=== PATIENT | male | born 1935 | race Caucasian/White ===

== ENCOUNTER 2018-04-07 06:51 | Inpatient (IN) ==
[2018-04-01 18:47] LABS: Appearance,Urine CLEAR; Bilirubin,Urine NEG (NEG); Color,Urine STRAW; Glucose,Urine (UA) NEGATIVE (NEG); Leukocyte Esterase,Urine NEG /uL (NEG); Protein,Urine NEG (NEG); Specific Gravity,Urine 1.009 (1.000-1.035); Urine Blood NEG mg/dL (<0.03); Urobilinogen,Urine NEG (NEG)
[2018-04-01 19:18] LABS: Basophils # (Auto) 0 K/mcL (0.0-0.3); Basophils % (Auto) 0.6 % (0.0-2.0); Eosinophils # (Auto) 0.2 K/mcL (0.0-0.7); Eosinophils % (Auto) 2.8 % (0.0-7.0); Granulocytes % (Auto) 62.1 % (38.0-78.0); Lymphocytes # (Auto) 1.7 K/mcL (1.5-4.8); Lymphocytes % (Auto) 26.2 % (15.5-49.0); Mean Corpuscular HGB Conc 33.3 g/dL (31.0-36.0); Mean Corpuscular Hemoglobin 29.6 pg (26.0-34.0); Monocytes # (Auto) 0.5 K/mcL (0.1-0.9); Monocytes % (Auto) 8.3 % (1.0-12.0); Platelet Count 253 K/mcL (140-440); RBC 4.99 M/mcL (4.50-5.90); Red Cell Distribution Width 13.3 % (11.5-14.5)
[2018-04-01 20:23] LABS: Blood Urea Nitrogen 23 mg/dl (8-23); Estimated Average Glucose(eAG) 108 mg/dL; Hemoglobin A1C 5.4 % HGB (4.0-6.0)
[2018-04-07] MEDS ORDERED: CELECOXIB 200 MG CAPSULE PO SCH (07:00)
[2018-04-07] MEDS ORDERED: PREGABALIN 75 MG CAPSULE PO SCH (07:00)
[2018-04-07] MEDS ORDERED: oxyCODONE 10 MG TAB.ER.12H PO SCH (07:00)
[2018-04-07] MEDS ORDERED: 0.9 % SODIUM CHLORIDE 9 ML, KETOROLAC 30 MG, ROPIVACAINE HCL/PF 49.5 ML, EPINEPHrine 0.... IJ SCH (07:00)
[2018-04-07] MEDS ORDERED: ceFAZolin 1 GM VIAL IV SCH (07:00)
[2018-04-07] MEDS ORDERED: ROPIVACAINE HCL/PF 20 ML VIAL IJ ONE (09:10)
[2018-04-07] MEDS ORDERED: LIDOCAINE HCL/PF 100 MG/5 ML SYRINGE IV ONE (09:10)
[2018-04-07] MEDS ORDERED: TRANEXAMIC ACID 1,000 MG/10 ML VIAL IV ONE ×2 (09:10→10:46)
[2018-04-07] MEDS ORDERED: fentaNYL 100 MCG/2 ML VIAL IV ONE (09:10)
[2018-04-07] MEDS ORDERED: PROPOFOL 200 MG/20 ML VIAL IV ONE (09:10)
[2018-04-07] MEDS ORDERED: GLYCOPYRROLATE 0.2 MG/ML VIAL IV ONE (09:10)
[2018-04-07] MEDS ORDERED: DEXAMETHASONE 10 MG/ML VIAL IV ONE (09:10)
[2018-04-07] MEDS ORDERED: PHENYLEPHRINE 10 MG/ML VIAL IV ONE (09:10)
[2018-04-07] MEDS ORDERED: ONDANSETRON 4 MG/2 ML VIAL IV ONE (09:10)
[2018-04-07] MEDS ORDERED: MIDAZOLAM 5 MG/5 ML VIAL IV ONE (09:10)
[2018-04-07] MEDS ORDERED: BENZOCAINE/MENTHOL 1 LOZENGE PO PRN ×2 (10:31→10:46)
[2018-04-07] MEDS ORDERED: ONDANSETRON 4 MG/2 ML VIAL IV PRN ×2 (10:31→10:46)
[2018-04-07] MEDS ORDERED: FLUMAZENIL 0.1 MG/ML ML IV PRN (10:31)
[2018-04-07] MEDS ORDERED: ACETAMINOPHEN 1,000 MG/100 ML BOTTLE IV ONE (10:31)
[2018-04-07] MEDS ORDERED: LACTATED RINGERS 250 ML IV PRN (10:31)
[2018-04-07] MEDS ORDERED: MEPERIDINE 25 MG/ML SYRINGE IV PRN (10:31)
[2018-04-07] MEDS ORDERED: fentaNYL 100 MCG/2 ML VIAL IV PRN (10:31)
[2018-04-07] MEDS ORDERED: IPRATROPIUM/ALBUTEROL 3 ML AMPUL.NEB NEB PRN (10:31)
[2018-04-07] MEDS ORDERED: METHOCARBAMOL 1,000 MG/10 ML VIAL IV PRN (10:31)
[2018-04-07] MEDS ORDERED: NALOXONE HCL 0.4 MG/ML VIAL IV PRN (10:31)
[2018-04-07] MEDS ORDERED: LACTATED RINGERS 1,000 ML IV SCH (10:45)
[2018-04-07] MEDS ORDERED: DEXTROSE 50% 50 ML VIAL IV PRN (10:46)
[2018-04-07] MEDS ORDERED: POLYETHYLENE GLYCOL 3350 17 GM PACKET PO PRN ×2 (10:46→10:50)
[2018-04-07] MEDS ORDERED: MAGNESIUM HYDROXIDE 30 ML ORAL.SUSP PO PRN (10:46)
[2018-04-07] MEDS ORDERED: BISACODYL 10 MG SUPP.RECT PR PRN (10:46)
[2018-04-07] MEDS ORDERED: DEXTROSE 31 GM ORAL.SUSP PO PRN (10:46)
[2018-04-07] MEDS ORDERED: FLEETS ADULT ENEMA PR PRN (10:46)
--- NOTE | 2018-04-07 10:46 | Brief Operative Note ---
Date of procedure: 04/07/18 Pre-op diagnosis: Right knee severe DJD Post-op diagnosis: same Procedure: Right robotic assisted total knee arthroplasty Grafts/Implants: Yes ([place] Triathlon 6 CR femur, 6 tibia, 9mm insert, 39 patella) Anesthesia: spinal, GLMA Findings: severe arthritis Complications: none Surgeon: Alexy Pratt Steak Sauce Maker: Tim Henry Estimated blood loss (cc): 30 Specimens Removed/Pathology: none sent Condition: stable Disposition: PACU
[2018-04-07] MEDS ORDERED: [UNRECOGNIZED DRUG - OTHER] NAS PRN (10:50)
[2018-04-07] MEDS ORDERED: DOCUSATE SODIUM PO PRN (10:50)
--- NOTE | 2018-04-07 11:27 | Operative Note ---
DATE OF OPERATION: 04/07/2018 PREOPERATIVE DIAGNOSIS: Right knee severe arthritis. POSTOPERATIVE DIAGNOSIS: Right knee severe arthritis. PROCEDURE PERFORMED: Right robotic-assisted total knee arthroplasty placing a [place] Triathlon size 6 cruciate retaining femoral component, size 6 tibial baseplate, 9 mm X3 tibial insert with a 39 mm patellar button. SURGEON: Alexy Pratt MD SAMPLE PASTER: Levi Henry PA-C. ANESTHESIA: Spinal plus general. DRAINS: None. SPECIMENS: Bone cuts, which were discarded. BLOOD LOSS: Less than 50 mL COMPLICATIONS: None. POSTOPERATIVE CONDITION: Stable. INDICATIONS FOR SURGERY: This 82-year-old male who has had longstanding worsening right knee pain. Radiographs showed advanced axwn-mi-gcvz multi-compartment osteoarthritis. FINDINGS AT SURGERY: As above, with severe synovitis and effusion. Post implantation showed good patellar tracking and joint stability. PROCEDURE IN DETAIL: The patient had been seen preoperatively and informed consent had been obtained after discussion of risks and benefits of surgery. Risks including, but not limited to, bleeding, possibly requiring transfusion; infection, possibly requiring implant removal and prolonged IV antibiotics, possibly ultimately resulting in an above-knee amputation, injury to nerves, blood vessels other surrounding structures; anesthetic risks; incomplete or no resolution of symptoms; stiffness; swelling; pain; instability; DVT and pulmonary embolus risks; and the possibility of needing further revision surgery. He understood these risks and wished to proceed. Correct operative site was marked and then patient received spinal anesthesia. He was then taken to the operating room and LMA general given. The right lower extremity was carefully prepped and draped in normal sterile fashion. A timeout was performed verifying patient name, operative site, and plan. Esmarch was used to exsanguinate the extremity and tourniquet was inflated. A midline incision was made with a scalpel through skin and subcutaneous tissue. IrriSept was irrigated and then a medial parapatellar arthrotomy made and a very large joint effusion was suctioned. Subperiosteal exposure was done of the anterior medial tibia and then retropatellar fat pad was excised and anterior horns of the menisci removed. These were very degenerated and torn. We then placed our femoral and tibial checkpoints. We then made two stab incisions over the femur and two over the tibia, and placed bicortical pins and then connected the arrays. We then cut the patella freehand, measured 28 mm pre-resection and 16 mm post-resection. We placed a cut protector. We then did our hip center of rotation check. A green probe was used to identify the medial and lateral malleoli and do double checks of our checkpoints. We then used the blue probe after IrriSept was irrigated in the joint and did our mapping. Once mapping was completed, we used a rongeur to remove osteophytes. We then checked our flexion, extension gaps with the spoons. We then adjusted our implants to get 17 mm gaps medially, both in flexion and extension and we had 18 mm laterally in flexion and extension. It did require 3 degrees of varus on the tibia and I believe 2 degrees of varus on the femur with 6 degrees of external rotation. We then used the robotic arm to make our bone cuts. After this was completed, we prepared our tibia externally rotating as bone coverage would allow. We then placed a keeled tibial trial. The femur was elevated and a curved osteotome used to remove osteophytes and then a curved curet also used. We then removed the posterior horns of menisci. Femoral trial was impacted and pinned into place. Holes were drilled and then a 9 insert trial placed. The knee was taken into extension; with some manipulation I was able to get him to 6 degrees short of full. We then sized our patella to a 39. This was medialized maximally. Holes were drilled and then patellar trial placed. Limited lateral facetectomy was performed. We checked our patellar tracking and it still wanted to track lateral, so we performed a lateral retinacular release with Bovie cautery starting at the superior pole of patella approximately 1 cm lateral and extending this all the way to the tibia. After this patella tracked nicely. We then opened implants; we removed the trial implants. Antibiotic cement was mixed. We irrigated the joint with IrriSept. After a minute we copiously pulse lavaged with saline. We then used the CO2 to clean and dry the cancellous bone surface and then we cemented the tibia followed by the femur. Excess cement was removed. The insert trial was placed and the knee was taken into extension. We cemented the patella and then excess cement was removed. We removed the checkpoints, filled the joint with IrriSept. We then injected pain cocktail in the pericapsular and subcutaneous tissues. We also removed our pins at this time. Once cement had hardened, we flexed the knee up, removed the trial insert and a definitive 9 insert was opened. We injected pain cocktail in the posterior capsule and then irrigated IrriSept onto the tray and then impacted the insert. We took the knee into extension and performed a fairly aggressive synovectomy in the suprapatellar pouch due to extensive synovitis. We then did a final pulse lavage with saline and then the knee was taken into about 45 degrees of flexion. Interrupted #2 FiberWire [id number] were used around the superior quadrant of the patella, interrupted #1 Vicryl [id number] around the inferior quadrant, running #1 Vicryl was used for patellar tendon and quad tendon. Final IrriSept irrigation was done, after a minute pulse lavage, and then 2-0 Monocryl for subcutaneous and louisa for skin. Xeroform sterile dressings were applied. Tourniquet was released. The patient was awakened, extubated, and transferred to recovery in stable condition. [email or web address] Job ID: [id number] Doc ID: [id number] Alexy Pratt MD
--- NOTE | 2018-04-07 11:42 | XRay Report ---
HISTORY: Postop right knee replacement FINDINGS: There is a well positioned total knee prosthesis. No fracture is present. Small corticated soft tissue calcifications are seen along the medial side of the joint, near the tibial plateau and the inferior medial border of the medial femoral condyle. IMPRESSION: Well-positioned right knee prosthesis Interpreted and Authenticated by: Mando Watson 04/07/18
[2018-04-07] MEDS: 0.45 % SODIUM CHLORIDE 1,000 ML IV SCH ×2 (12:34→22:07)
[2018-04-07] MEDS: 0.9 % SODIUM CHLORIDE 10 ML SYRINGE IV SCH ×2 (13:49→20:45)
[2018-04-07] MEDS: INSULIN LISPRO 1 UNIT/0.01 ML UNIT SQ SCH ×3 (13:56→20:39)
[2018-04-07] MEDS: HYDROcodone/APAP 10/325MG TABLET PO PRN ×3 (14:40→23:28)
[2018-04-07] MEDS: ceFAZolin 1 GM VIAL IV SCH (16:55)
[2018-04-07] MEDS: ASPIRIN 325 MG ENTERIC COATED TABLET PO SCH (20:40)
[2018-04-07] MEDS: DOCUSATE SODIUM 100 MG CAPSULE PO SCH (20:40)
[2018-04-07] MEDS ORDERED: VITAMIN D3 1,000 UNIT TABLET PO SCH (21:00)
[2018-04-07] MEDS ORDERED: TAMSULOSIN 0.4 MG CAPSULE PO SCH (21:00)
[2018-04-07] MEDS ORDERED: SIMVASTATIN 10 MG TABLET PO SCH (21:00)
[2018-04-07] MEDS ORDERED: SENNOSIDES 1 TABLET PO SCH (21:00)
[2018-04-08] MEDS: ceFAZolin 1 GM VIAL IV SCH (01:14)
[2018-04-08] MEDS: HYDROcodone/APAP 10/325MG TABLET PO PRN ×3 (03:36→11:42)
[2018-04-08] MEDS: 0.9 % SODIUM CHLORIDE 10 ML SYRINGE IV SCH (04:40)
[2018-04-08] MEDS ORDERED: metFORMIN 500 MG TABLET PO SCH (07:30)
[2018-04-08] MEDS: DOCUSATE SODIUM 100 MG CAPSULE PO SCH (07:34)
[2018-04-08] MEDS: INSULIN LISPRO 1 UNIT/0.01 ML UNIT SQ SCH ×2 (07:34→11:43)
[2018-04-08] MEDS: ASPIRIN 325 MG ENTERIC COATED TABLET PO SCH (07:34)
[2018-04-08] MEDS: 0.45 % SODIUM CHLORIDE 1,000 ML IV SCH (07:35)
[2018-04-08] MEDS ORDERED: METOPROLOL TARTRATE 50 MG TABLET PO SCH (09:00)
[2018-04-08] MEDS ORDERED: LISINOPRIL 20 MG TABLET PO SCH (09:00)
[2018-04-08] MEDS ORDERED: HYDROCHLOROTHIAZIDE 25 MG TABLET PO SCH (09:00)
--- NOTE | 2018-04-08 09:10 | Discharge Summary ---
Ortho Discharge - [facility] - Patient Instructions Diet: Consistent Carbohydrate Activity: weight bearing as tolerated Total Knee Protocol: For Total Knee: Start ROM JONATHAN with stationary bike or rocking chair. Work on gaining full extension of knee. Posterior dislocation precautions provided. Hip abductor strengthening and gait training instructions provided. Apply Cryocuff as instructed. Dressing Care: Aquacel Ag - leave on for 5 days Patient Education: Total Knee Replacement (DC) Additional Instructions: Discharge Instructions: Do the exercises at home that physical therapy gave you throughout the day. Weight bearing as tolerated. Wear comfortable clothing for physical therapy. You are scheduled to start physical therapy at [facility] ([phone] ) on at 9:30 am, please arrive 15 minutes early for physical therapy. Take your prescription, photo ID, insurance cards, and current medication list with you to your first physical therapy appointment. Take your prescription to continuous pickling line pickler any medication. You have the Aquacel Ag dressing, leave in place for 7 days then remove. If dressing becomes soiled (turns black), remove and use gauze 4x4 dressing and silvasorb ointment and change daily. Keep incision clean and dry. You may start showering on post op day #2. To avoid constipation while taking any narcotic pain medication, take an over the counter stool softener/laxative. Use your Cryocuff or ice packs as directed, on for 20 minutes at a time throughout the day. This and elevation will help with pain and swelling. Call your physician for fevers above 100.5 or pain not controlled by medication. Your prescriptions are with your discharge information. Some medications were electronically transmitted to your pharmacy of choice. Take Aspirin twice daily, for 30 days, as prescribed to prevent blood clots ( see medication list). - Follow Up Plan Follow Up Appointments: Alexy rPatt MD [Physician] - 04/22/18 10:00 am Disposition: Home, Self-Care Prognosis: Good Rehab Potential: Good - Orders For Discharge Additional Discharge Orders: Physical Therapy at Discharge - [facility]KA Location: None Selected Toilet Riser Discharge Order Location: None Selected Walker Location: None Selected
== END 2018-04-08 13:25 | disposition home or self-care (01) | DRG 470 ==
LOC: MEDSUR 06:51
PROVIDERS: ADMIT Orthopaedic Surgery; ATTEND Orthopaedic Surgery
CPT/HCPCS: 62322; 97161; C1713; C1776; J0131; J0690; J1100; J1817; J2001; J2250; J2270; J2370; J2405; J2795; J3010; J7040; J7120